=== PATIENT | male | born 1960 | race African-American/Black ===

== ENCOUNTER 2017-06-03 10:40 | Emergency (ER) | payer SELFPAY ==
[2017-06-03] MEDS ORDERED: Morphine 10 MG/ML VIAL ONE (12:41)
--- NOTE | 2017-06-03 13:04 | ULT ---
SCROTAL ULTRASOUND: Date: 06/03/17 COMPARISON: None. HISTORY: Right-sided testicular pain. TECHNIQUE: Multiplanar Roche scale sonographic imaging of the scrotal contents with Doppler interrogation of the testicles, including color flow and spectral analysis obtained. FINDINGS: Right testicle measures 3.2 x 4.5 x 2.9 cm. Left testicle measures 2.1 x 4.4 x 2.1 cm. Arterial and venous blood flow is documented within both testicles. The right testicle appears slight ly hyperemic when compared to the left. There is a moderate right-sided hydrocele. Right epididymis appears enlarged, the head measuring 2.1 x 1.3 cm. Left epididymal head measures 1.0 x 1.0 cm. Right epididymal head appears slightly hyperemic as well. No intratesticular mass noted on either side. There are prominent vascular structures in the right inguinal region which measure up to 5-6 mm on Va lsalva. IMPRESSION: 1. Hyperemic right testicle and right epididymis suggests epididymitis/orchitis on the right. 2. No intratesticular mass identified. 3. Right-sided varicocele. POS: [facility]
[2017-06-03] MEDS ORDERED: Ondansetron ODT 8 MG TAB ONE (13:31)
[2017-06-03] MEDS ORDERED: Iopamidol 370 76% 50 ML VIAL FS ONE (14:14)
[2017-06-03] MEDS ORDERED: ISOVUE-370 76%-LOCM 1 ML ONE (14:14)
[2017-06-03 15:29] LABS: #Lymphocytes 1.8 thou/uL (1.20-3.40); #Monocytes 1.2 thou/uL (0.11-0.59); #Neutrophils 11.4 thou/uL (1.40-6.50); %Basophils 0.2 % (0.0-1.0); %Eosinophils 0.3 % (0.0-10.0); %Lymphocytes 12.3 % (21.0-51.0); %Monocytes 8.3 % (0.0-10.0); Hemoglobin 13.4 g/dL (14.0-18.0); Mean Corpuscular HGB CONC 33.6 g/dL (32.0-36.0); Mean Corpuscular Hemoglobin 32.1 pg (27.0-31.0); Mean Corpuscular Volume 95.5 fl (80.0-94.0); Mean Platelet Volume 7.1 fL (7.4-10.4); Platelet Count 312 thou/uL (130-400); RBC Distribution Width 11.3 % (11.5-14.5); Red Blood Cell (RBC) Count 4.18 mill/uL (4.70-6.10); White Blood Cell (WBC) Count 14.4 thou/uL (4.8-10.8)
[2017-06-03] MEDS ORDERED: Acetaminophen 500 MG TAB ONE (15:30)
[2017-06-03 15:44] LABS: CRP (Inflammatory) 8.24 mg/dL (= or < 0.5)
[2017-06-03 15:50] LABS: ALT (SGPT) 17 U/L (8-55); AST (SGOT) 22 U/L (5-34); Albumin 3.6 g/dL (3.5-5.0); Alkaline Phosphatase 91 U/L (40-150); Anion Gap 11 mmol/L (10-20); BUN (Urea Nitrogen) 9 mg/dL (8.4-25.7); Bilirubin, Total 0.8 mg/dL (0.2-1.2); Calc. Creatinine Clearance 0 mL/min (70-130); Calcium 8.5 mg/dL (7.8-10.44); Carbon Dioxide 24 mmol/L (22-29); Chloride 103 mmol/L (98-107); Estimated GFR-MDRD 90; Globulin 3.6 g/dL (2.4-3.5); Glucose 88 mg/dL (70-105); Potassium 3.7 mmol/L (3.5-5.1); Protein, Total 7.2 g/dL (6.0-8.3); Sodium 134 mmol/L (136-145)
[2017-06-03] MEDS ORDERED: Ciprofloxacin 500 MG TAB ONE (16:12)
[2017-06-03 16:21] LABS: Bilirubin Small (Negative); Blood, Urine Negative (Negative); Clarity CLEAR (Clear); Glucose, Urine (Dipstick) Negative (Negative); Leukocyte Moderate (Negative); Nitrite Negative (Negative); Protein, Urine (Dipstick) 30 mg/dL (Neg-Trace); Specific Gravity, Urine 1.019 (1.002-1.036)
[2017-06-03 16:23] LABS: Bacteria/HPF None Seen HPF (None Seen); Pathc Cast-AUWi Flag 0.72 (0-2.49); RBC/HPF 0-3 HPF (0-3)
[2017-06-03 16:34] LABS: Hyaline Casts/LPF 0-3 HYALINE CAST LPF (0-3 Hyaline); Transitional Epithelial 0-3 HPF (0-3)
--- NOTE | 2017-06-03 18:16 | CT ---
CT ABDOMEN AND PELVIS WITH IV CONTRAST: 06/03/17 HISTORY: Abdominal pain. Transfer from [facility] for evaluation of testicular torsion. Patien t riding in rough riding truck five days ago and started having pain and swelling to right testicle. Patient states feels as if something is pulling loose. COMPARISON: Testicular ultrasound on 06/03/17. FINDINGS: There is dependent bibasilar atelectasis. There is a small focal area of herniation of fat at the pos terior inferior aspect of the left hemidiaphragm. The gallbladder is distended. Portion of the common duct is dilated measuring 1.3 cm and there is min imal intrahepatic biliary ductal dilatation. No pancreatic head mass is appreciated on this examinati on. The exact etiology for biliary ductal dilatation is uncertain. Splenic granulomata are seen. The pancreas, bilateral adrenal glands, kidneys, and urinary bladder demonstrate a normal CT appearan ce. Vascular calcifications are seen in the abdominal aorta and iliac arteries. Opacified small bowel is normal in caliber. There is increased vascularity seen in the region of the right inguinal canal and adjacent to the rig ht testicle suggesting hyperemia which correlates with findings on recent testicular ultrasound with mild enhancement of what is thought to be the epididymis. Findings were suggestive of epididymal orch itis on the recent testicular ultrasound exam. There does appears to be small right sided hydrocele. No mass or lymphadenopathy is seen in the right aspect of the pelvis, but there is a tiny amount of f ree fluid in the right aspect of the pelvis. The appendix is not definitively visualized on this exam. IMPRESSION: 1. Dilatation of the common duct with minimal intrahepatic biliary ductal dilatation. Exact etio logy for biliary ductal dilatation is uncertain based on this exam. No pancreatic head mass is apprec iated. Nonemergent GI consultation is suggested. Gallbladder is dilated measuring 5.8 cm. 2. Increased vascularity in the region of the right inguinal canal and in the right aspect of th e scrotum. Recent testicular ultrasound also obtained earlier on this date demonstrated sonographic f indings suggesting epididymitis/orchitis on the right. 3. Small right hydrocele. 4. Tiny amount of free fluid in the right aspect of the pelvis. 5. Suggestion of mild increase in number of bilateral inguinal lymph nodes, although no enlarge d lymph node is appreciated by CT size criteria. There is a prominent lymph nodes within the left in guinal canal which measures 1.2 cm in short axis which is mildly enlarged. 6. Prostate calcifications as well as calcifications in the right epididymis. This is nonspecifi c. POS: [facility]
== END 2017-06-03 17:34 | disposition home or self-care (01) ==
LOC: ERS 10:40
DX: N45.1 Epididymitis (principal); F17.200 Nicotine dependence, unspecified, uncomplicated; Z71.6 Tobacco abuse counseling
CPT/HCPCS: 36415; 74177; 76870; 81003; 81015; 83605; 83690; 86140; 87040; 87086; 93005; 93976; 96361; 96374; 99406; J2270

== ENCOUNTER 2018-02-27 10:32 | Emergency (ER) | payer SELFPAY ==
[2018-02-27 11:31] LABS: Bilirubin Negative (Negative); Blood, Urine Negative (Negative); Clarity CLEAR (Clear); Glucose, Urine (Dipstick) Negative (Negative); Leukocyte Trace (Negative); Nitrite Negative (Negative); Protein, Urine (Dipstick) Negative (Neg-Trace); Specific Gravity, Urine 1.014 (1.002-1.036); pH, Urine 7.5 (5.0-9.0)
[2018-02-27 11:35] LABS: Bacteria/HPF None Seen HPF (None Seen); Hyaline Casts/LPF 0-3 HYALINE CAST LPF (0-3 Hyaline); RBC/HPF 0-3 HPF (0-3); Squamous Epithelial 0-3 HPF (0-3)
[2018-02-27] MEDS ORDERED: HYDROcodone/Acetaminophen 5/325 mg Tablet ONE (12:05)
--- NOTE | 2018-02-27 12:20 | ULT ---
SCROTAL SONOGRAM WITH DUPLEX EVAULATION: HISTORY: Testicular pain. FINDINGS: The right testicle is 3.6 cm and the left is 4.1 cm. Each has a normal appearance with good color an d spectral Doppler flow. Minimal bilateral fluid. The left testicle and epididymis are hypervascular. Increased vessels are present at each inguinal c anal, without engorgement upon Valsalva. At the left side of the scrotum, the vessels do become slig htly more engorged upon Valsalva. IMPRESSION: 1. Left varicocele with probable superimposed epididymal orchitis. 2. Small bilateral hydroceles. POS: [facility]
== END 2018-02-27 13:05 | disposition home or self-care (01) ==
LOC: ERS 10:32
DX: N45.3 Epididymo-orchitis (principal); F17.200 Nicotine dependence, unspecified, uncomplicated
CPT/HCPCS: 76870; 81003; 81015; 93976

== ENCOUNTER 2024-09-28 16:39 | Inpatient (IN) | payer MEDICAID, SELFPAY ==
[2024-09-28 17:37] LABS: Hematocrit 35.0 % (42.0-52.0); Hemoglobin 11.1 g/dL (14.0-18.0); Mean Corpuscular Hemoglobin 28.8 pg (27.0-31.0); Mean Corpuscular Volume 90.7 fL (78.0-98.0); Platelet Count 129 10x3/uL (130-400); Red Blood Cell (RBC) Count 3.86 mill/uL (4.70-6.10); White Blood Cell (WBC) Count 7.39 10x3/uL (4.8-10.8)
[2024-09-28 17:38] LABS: Lipase 35 U/L (8-78)
[2024-09-28 17:40] LABS: Acetaminophen Less than 10 mcg/mL (Less than 10); Salicylate Less than 8.0 mg/dL (Less than 8.0)
[2024-09-28 17:42] LABS: ALT (SGPT) 13 U/L (Less than 45); AST (SGOT) 21 U/L (11-34); Albumin 3.7 g/dL (3.1-4.5); Alkaline Phosphatase 103 U/L (40-110); Anion Gap 16 mmol/L (10-20); BUN (Urea Nitrogen) 17 mg/dL (8.4-25.7); Bilirubin, Total 0.4 mg/dL (0.3-1.2); CK (CPK) 138 U/L (30-200); Calc. Creatinine Clearance 0 mL/min (70-130); Calcium 9.2 mg/dL (7.8-10.44); Carbon Dioxide 28 mmol/L (23-31); Chloride 104 mmol/L (98-107); Globulin 3.7 g/dL (2.4-3.5); Glucose 106 mg/dL (80-115); Potassium 3.9 mmol/L (3.5-5.1); Sodium 144 mmol/L (136-145)
[2024-09-28 17:56] LABS: Anisocytosis SLIGHT = 6-15 cells HPF (0-5); Macrocytosis SLIGHT = 6-15 cells HPF (0-5); Nucleated RBC (Manual Ct) 2 % (0); Ovalocytes SLIGHT = 2-5 cells HPF (0-1); Platelet Adequacy Comment Platelets Decreased; Polychromasia SLIGHT = 2-3 cells HPF (0-2); Schistocytes SLIGHT = 2-5 cells HPF (0-1); Smudge Cells 17.3 %; Stomatocytes SLIGHT = 2-5 cells HPF (0-1)
[2024-09-28 18:34] LABS: CAUTI Indications for Culture Alt mental st,lethar; Glucose, Urine (Dipstick) Normal (Negative); Leukocyte Negative Leu/uL (Negative); Protein, Urine (Dipstick) Negative (Neg-Trace); RBC/HPF 0-3 HPF (0-3); Specific Gravity, Urine 1.011 (1.002-1.036); WBC/HPF 0-3 HPF (0-3)
[2024-09-28 18:37] LABS: Bacteria/HPF 1+ HPF (None Seen)
[2024-09-28 18:38] LABS: Urine Culture Reflex No No
[2024-09-28 18:41] LABS: Cocaine Metabolite Screen Negative (Negative); THC/Cannabinoid Screen Negative (Negative); Tricyclic Screen PRELIM POSITIVE (Negative)
[2024-09-28] MEDS ORDERED: Ondansetron PF 4 MG/2 ML Vial IVP PRN (22:56)
[2024-09-29 02:51] VITALS: BMI 33.0
[2024-09-29 04:35] LABS: Hematocrit 36.5 % (42.0-52.0); Hemoglobin 11.0 g/dL (14.0-18.0); Mean Corpuscular Hemoglobin 28.1 pg (27.0-31.0); Mean Corpuscular Volume 93.4 fL (78.0-98.0); Platelet Count 130 10x3/uL (130-400); Red Blood Cell (RBC) Count 3.91 mill/uL (4.70-6.10); White Blood Cell (WBC) Count 6.84 10x3/uL (4.8-10.8)
[2024-09-29 04:41] LABS: Anion Gap 17 mmol/L (10-20); BUN (Urea Nitrogen) 15 mg/dL (8.4-25.7); Calc. Creatinine Clearance 81 mL/min (70-130); Calcium 9.3 mg/dL (7.8-10.44); Carbon Dioxide 28 mmol/L (23-31); Chloride 108 mmol/L (98-107); Glucose 76 mg/dL (80-115); Potassium 3.9 mmol/L (3.5-5.1); Sodium 149 mmol/L (136-145)
[2024-09-29 05:08] LABS: Other Cell Types 1.0; Platelet Adequacy Comment Platelets Normal; Polychromasia SLIGHT = 2-3 cells HPF (0-2); Smudge Cells 28.0 %; Target Cells SLIGHT = 2-5 cells HPF (0-1)
[2024-09-29] MEDS: Enoxaparin 40 MG (0.4 mL) SYRINGE SC SCH (09:16)
[2024-09-29] MEDS ORDERED: Famotidine/PF 20 mg/2ml Vial ONE (09:16)
[2024-09-29] MEDS ORDERED: Enoxaparin 40 MG (0.4 mL) SYRINGE ONE (09:16)
[2024-09-29] MEDS: Famotidine/PF 20 mg/2ml Vial SLOW IVP SCH (09:17)
[2024-09-30 05:29] LABS: #Basophils Less than 0.03 10x3/uL (0.0-0.2); #Eosinophils 0.15 10x3/uL (0.0-0.7); #Monocytes 0.63 10x3/uL (0.11-0.59); #Neutrophils 1.90 10x3/uL (1.40-6.50); %Basophils 0.4 % (0.0-1.0); %Eosinophils 3.1 % (0.0-10.0); %Lymphocytes 43.1 % (21.0-51.0); %Monocytes 13.1 % (0.0-10.0); %Neutrophils 39.7 % (42.0-75.0); Hematocrit 35.8 % (42.0-52.0); Hemoglobin 8.9 g/dL (14.0-18.0); Mean Corpuscular Hemoglobin 23.5 pg (27.0-31.0); Mean Corpuscular Volume 94.7 fL (78.0-98.0); Platelet Count 115 10x3/uL (130-400); Red Blood Cell (RBC) Count 3.78 mill/uL (4.70-6.10); White Blood Cell (WBC) Count 4.80 10x3/uL (4.8-10.8)
[2024-09-30 05:40] LABS: Albumin 3.6 g/dL (3.1-4.5); Anion Gap 15 mmol/L (10-20); BUN (Urea Nitrogen) 13 mg/dL (8.4-25.7); BUN/Creatinine Ratio 12.50; Calc. Creatinine Clearance 114 mL/min (70-130); Calcium 9.0 mg/dL (7.8-10.44); Carbon Dioxide 24 mmol/L (23-31); Chloride 108 mmol/L (98-107); Glucose 103 mg/dL (80-115); Potassium 4.0 mmol/L (3.5-5.1); Sodium 143 mmol/L (136-145)
[2024-10-01 06:20] LABS: #Basophils 0.03 10x3/uL (0.0-0.2); #Eosinophils 0.24 10x3/uL (0.0-0.7); #Monocytes 0.54 10x3/uL (0.11-0.59); #Neutrophils 1.89 10x3/uL (1.40-6.50); %Basophils 0.6 % (0.0-1.0); %Eosinophils 4.9 % (0.0-10.0); %Lymphocytes 45.0 % (21.0-51.0); %Monocytes 11.0 % (0.0-10.0); %Neutrophils 38.3 % (42.0-75.0); Hematocrit 35.8 % (42.0-52.0); Hemoglobin 11.2 g/dL (14.0-18.0); Mean Corpuscular Hemoglobin 28.6 pg (27.0-31.0); Mean Corpuscular Volume 91.3 fL (78.0-98.0); Platelet Count 141 10x3/uL (130-400); Red Blood Cell (RBC) Count 3.92 mill/uL (4.70-6.10); White Blood Cell (WBC) Count 4.93 10x3/uL (4.8-10.8)
[2024-10-01] MEDS: Acetaminophen 325 MG TAB PO PRN (15:18)
[2024-10-02 05:41] LABS: #Basophils 0.04 10x3/uL (0.0-0.2); #Eosinophils 0.22 10x3/uL (0.0-0.7); #Monocytes 0.57 10x3/uL (0.11-0.59); #Neutrophils 2.15 10x3/uL (1.40-6.50); %Basophils 0.7 % (0.0-1.0); %Eosinophils 3.8 % (0.0-10.0); %Lymphocytes 48.2 % (21.0-51.0); %Monocytes 9.9 % (0.0-10.0); %Neutrophils 37.2 % (42.0-75.0); Hematocrit 38.2 % (42.0-52.0); Hemoglobin 11.8 g/dL (14.0-18.0); Mean Corpuscular Hemoglobin 28.9 pg (27.0-31.0); Mean Corpuscular Volume 93.4 fL (78.0-98.0); Platelet Count 156 10x3/uL (130-400); Red Blood Cell (RBC) Count 4.09 mill/uL (4.70-6.10); White Blood Cell (WBC) Count 5.77 10x3/uL (4.8-10.8)
[2024-10-02 05:58] LABS: Anion Gap 12 mmol/L (10-20); BUN (Urea Nitrogen) 13 mg/dL (8.4-25.7); Calc. Creatinine Clearance 115 mL/min (70-130); Calcium 8.8 mg/dL (7.8-10.44); Carbon Dioxide 25 mmol/L (23-31); Chloride 108 mmol/L (98-107); Glucose 100 mg/dL (80-115); Magnesium 1.9 mg/dL (1.6-2.6); Potassium 4.2 mmol/L (3.5-5.1); Sodium 141 mmol/L (136-145)
[2024-10-04 14:43] VITALS: BMI 33.0
[2024-10-07 05:57] LABS: Anion Gap 17 mmol/L (10-20); BUN (Urea Nitrogen) 16 mg/dL (8.4-25.7); Calc. Creatinine Clearance 141 mL/min (70-130); Calcium 9.1 mg/dL (7.8-10.44); Carbon Dioxide 20 mmol/L (23-31); Chloride 107 mmol/L (98-107); Glucose 71 mg/dL (80-115); Magnesium 2.2 mg/dL (1.6-2.6); Potassium 4.9 mmol/L (3.5-5.1); Sodium 139 mmol/L (136-145)
[2024-10-07 06:40] LABS: #Basophils 0.05 10x3/uL (0.0-0.2); #Eosinophils 0.32 10x3/uL (0.0-0.7); #Monocytes 0.51 10x3/uL (0.11-0.59); #Neutrophils 1.81 10x3/uL (1.40-6.50); %Basophils 1.0 % (0.0-1.0); %Eosinophils 6.1 % (0.0-10.0); %Lymphocytes 48.5 % (21.0-51.0); %Monocytes 9.7 % (0.0-10.0); %Neutrophils 34.5 % (42.0-75.0); Hematocrit 40.7 % (42.0-52.0); Hemoglobin 12.7 g/dL (14.0-18.0); Mean Corpuscular Hemoglobin 29.5 pg (27.0-31.0); Mean Corpuscular Volume 94.7 fL (78.0-98.0); Platelet Count 194 10x3/uL (130-400); Red Blood Cell (RBC) Count 4.30 mill/uL (4.70-6.10); White Blood Cell (WBC) Count 5.24 10x3/uL (4.8-10.8)
[2024-10-08] MEDS ORDERED: Non-Formulary Item 1 EACH (Dolutegravir Sodium [Tivicay] 50 MG Tablet) PO SCH (09:00)
[2024-10-08 16:42] VITALS: BP 149/76; TEMP 97.8
== END 2024-10-08 17:00 | disposition home or self-care (01) | DRG 975 ==
LOC: ERS 16:39 → ERHOLD 22:55 → OBSVTOIN 09-29 10:34 → 2NO 09-29 16:01 → T4-A 09-30 21:22
PROVIDERS: ADMIT Hospitalist; ATTEND Internal Medicine
DX: G93.41 Metabolic encephalopathy (principal); E87.0 Hyperosmolality and hypernatremia; B20 Human immunodeficiency virus [HIV] disease; N17.9 Acute kidney failure, unspecified; F14.10 Cocaine abuse, uncomplicated; F12.10 Cannabis abuse, uncomplicated; F17.210 Nicotine dependence, cigarettes, uncomplicated; Z79.899 Other long term (current) drug therapy
CPT/HCPCS: 36415; 70450; 71045; 80048; 80053; 80069; 80306; 80307; 81001; 82140; 82550; 83605; 83690; 83735; 83880; 84443; 84484; 85025; 93005; 94760; G0378; J1308; J1650; J7030; J7042